=== PATIENT | female | born 1985 | race Caucasian/White ===

== ENCOUNTER 2021-12-31 06:50 | Emergency (ER) | payer MEDICAID ==
[~2021-12-31] VITALS: Ht 149.9 cm; Wt 69.4 kg
[2021-12-31 07:04] VITALS: BP_SYST 98
--- NOTE | 2021-12-31 07:04 | NUR ---
Pt to Er w/ c/o bilateral leg pain 03/01 x 2 weeks. Pt ambulates with strong steady gait.
--- NOTE | 2021-12-31 07:49 | NUR ---
Patient to ER bed 7 for evaluation. Side rails up. Report given to Julio SAENZ.
--- NOTE | 2021-12-31 08:05 | NUR ---
MD DALEY ASSESSING PT AT BEDSIDE.
--- NOTE | 2021-12-31 08:13 | NUR ---
PT DESCRIBES PAIN IN BILATERAL LEGS X 1 MONTH, NO MENSTRATION FOR 2 MONTHS. HAS SEEN PMD, RECEVIED PAIN SHOT WITH PMD. PT IS OTHERWISE STABLE, AND NO DISTRESS AND OBVIOUS SIGNS OF DISCOMFORT.
[2021-12-31 08:37] LABS: BASOPHILS % (AUTO) 0.5 % (0.0-2.0); EOSINOPHILS # (AUTO) 0.1 K/uL (0.0-0.4); EOSINOPHILS % (AUTO) 1.4 % (0.0-4.0); HEMATOCRIT 33.1 % (36-48); HEMOGLOBIN 11.4 g/dL (12.0-16.0); LYMPHOCYTES # (AUTO) 1.6 K/uL (1.0-5.5); LYMPHOCYTES % (AUTO) 30.5 % (20.5-51.5); MEAN CORPUSCULAR HEMOGLOBIN 30 pg (27-31); MEAN CORPUSCULAR HGB CONC 34 % (32-36); MEAN CORPUSCULAR VOLUME 87 fL (79.0-98.0); MONOCYTES # (AUTO) 0.5 K/uL (0.0-1.0); MONOCYTES % (AUTO) 8.9 % (1.7-9.3); NEUTROPHILS % (AUTO) 58.7 % (40.0-70.0); PLATELET COUNT (AUTO) 122 K/uL (130-430); RED BLOOD CELL COUNT(AUTO) 3.81 MIL/uL (4.2-6.2); RED CELL DISTRIBUTION WIDTH 13.5 % (9.0-15.0); WHITE BLOOD COUNT (AUTO) 5.1 K/uL (4.8-10.8)
[2021-12-31 08:57] LABS: CALCIUM 7.7 mg/dL (8.4-11.0); CREATININE 0.69 mg/dL (0.55-1.30); POTASSIUM 3.5 mmol/L (3.5-5.1)
[2021-12-31 09:05] LABS: ALBUMIN 3.2 g/dL (3.4-4.8); PHOSPHORUS 3.7 mg/dL (2.7-4.5); TOTAL BILIRUBIN 0.1 mg/dL (0.0-1.0)
--- NOTE | 2021-12-31 10:00 | NUR ---
pt up walking to toilet no discomfort noted.
--- NOTE | 2021-12-31 10:21 | NUR ---
Patient given written and verbal discharge instructions and verbalizes understanding. ER MD discussed with patient the results and treatment provided. Patient in stable condition. ID arm band removed. Rx of given. Patient educated on pain management and to follow up with PMD. Pain Scale0/10 . Opportunity for questions provided and answered. Medication side effect fact sheet provided.
[2021-12-31 10:22] VITALS: BP_SYST 98
== END 2021-12-31 10:22 | disposition home or self-care (01) ==
LOC: SED 06:50
DX: M79.605 Pain in left leg (principal); M79.604 Pain in right leg
CPT/HCPCS: 36415; 80053; 83735; 84100; 85025; 99283